=== PATIENT | male | born 1960 | race Caucasian/White ===

== ENCOUNTER 2020-05-24 10:02 | Observation (INO) ==
--- NOTE | 2020-05-05 14:54 | PAT Medication Instructions ---
Medication Instructions Date of Service May 05, 2020 Home Medications Medication Instructions Recorded meloxicam 15 mg tablet 15 mg PO daily PRN #30 tab 10/02/19 Wheeled Walker #1 ea 02/04/20 ferrous sulfate 325 mg (65 mg iron) tablet 325 mg PO 3XWK lorazepam 1 mg tablet 1 mg PO HS PRN meloxicam 15 mg tablet 15 mg PO daily PRN ibuprofen [Advil] 600 mg PO Q6H PRN ASK your surgeon for instructions meloxicam 15 mg tablet 15 mg PO daily PRN ibuprofen [Advil] 600 mg PO Q6H PRN DO NOT take the morning of surgery ferrous sulfate 325 mg (65 mg iron) tablet 325 mg PO 3XWK Take evening before surgery lorazepam 1 mg tablet 1 mg PO HS PRN (if needed) Other Notes If you have any questions please call us at [phone] or [phone] or [phone] or [phone]
--- NOTE | 2020-05-09 08:35 | Anesthesiology Consultation ---
Date of Service May 09, 2020 Assessment & Plan (1) Encounter for pre-operative examination: Per assessment on 05/09: Travel screen- Lives/works in [facility]. Uses PPE. No known COVID-19 positive contacts or current COVID-19 related symptoms. Surgeon arranging preop COVID testing. Awaiting results. Chart Review Chart Review: Acceptable Risk for Surgery and Patient seen in Pre Admission Testing Teaching & Discussion Pre-Anesthesia Teaching/Discussion Notes: Instructed NPO after midnight before surgery,except medications with 15 cc of water. Medication instructions provided according to the PAT guidelines. History Surgery Operation Date: 05/24/20 12:30 Proposed Procedures p Right Total Knee Arthroplasty - Vasile Murray MD Height/Weight Height: 5 ft 9 in Weight: 76.7 kg Allergies Allergy/AdvReac Type Severity Reaction Status Date / Time Penicillins AdvReac Unknown Hives Verified 05/09/20 08:56 (childhood) Medications Home Medications Medication Instructions Recorded Confirmed Last Taken ferrous sulfate 325 mg (65 mg 325 mg PO 3XWK 02/27/19 04/05/20 Unknown iron) tablet lorazepam 1 mg tablet 1 mg PO HS PRN 02/27/19 04/05/20 Unknown meloxicam 15 mg tablet 15 mg PO daily PRN #30 tab 10/02/19 04/05/20 Unknown Wheeled Walker #1 ea 02/04/20 02/04/20 Unknown ibuprofen [Advil] 600 mg PO Q6H PRN 04/05/20 04/05/20 Unknown Past Medical History Medical History Arthritis Exercise / Class Metabolic Activity II 4-5 Yardwork/Stairs/Walk up hill (one flight of stairs (no chest pain/no sob)) Past Surgical History Surgical History History of arthroscopy Right knee History of carpal tunnel release R/L History of colonoscopy History of herniorrhaphy History of repair of rotator cuff Right Past Anesthesia History No Hx of Anesthesia Complications and No Family Hx of Anesthesia Complications History of PONV No Hx of PONV and Hx of Motion Sickness (on oceans) Social History Smoking Status: Never smoker tobacco type: cigars Smoking cigarettes per day: 1 cigar/week (during golf season) Do You Dip or Chew Tobacco: No Hx Alcohol Use: Yes Alcohol type: beer alcohol intake frequency: a few times a week Hx Substance Use: No Review of Systems Patient denies chest pain, shortness of breath, dyspnea on exertion, fever, chills, cough, wheezing, palpitations. Physical Exam Vital Signs VITALS BP 144/93 P 71 TEMP 98.3 SP02 98%RA RESP 16 PHYSICAL Full neck and c-spine range of motion. Full TMJ range of motion. TMD 3 finger breaths Mallampati Score 1 Dentition: intact, + crowns (molars) Lungs: clear throughout to auscultation Cardiac: regular rate and rhythm, no murmurs noted Spine: normal Carotid arteries: negative bruit Extremities: no edema Testing Laboratory Results 05/09/20 09:11 05/09/20 09:11 PT 10.6 Seconds (9.0-12.0) 05/09/20 09:11 INR 1.0 (0.9-1.1) 05/09/20 09:11 APTT 29.2 Seconds (21.0-31.0) 05/09/20 09:11 Blood Type O Positive 05/09/20 09:11 Antibody Screen NEGATIVE 05/09/20 09:11 Electrocardiogram Date: 05/09/20 Findings: + NSR @ (68) Chest X-Ray Date: 05/09/20 FINDINGS: PA and lateral chest radiographs are obtained. No prior studies are available for comparison at the time of dictation. The cardiomediastinal silhouette is unremarkable. The lungs and pleural spaces are clear. There is no pneumothorax. The bony thorax appears intact. IMPRESSION: No active disease in the chest.
[2020-05-09 09:22] LABS: Basophils # (auto) 0.03 K/uL (0-0.2); Basophils % (auto) 0.5 %; Eosinophils # (auto) 0.16 K/uL (0-0.5); Eosinophils % (auto) 2.8 %; Hematocrit (blood only) 41.2 % (42-52); Hemoglobin 14.2 g/dL (14.0-18.0); Immature Granulocytes # (auto) 0.01 K/uL (0.00-0.02); Immature Granulocytes % (auto) 0.2 %; Lymphocytes # (auto) 1.41 K/uL (1.2-3.4); Lymphocytes % (auto) 24.8 %; Mean Corpuscular Hemoglobin 31.8 pg (25-34); Mean Corpuscular Hgb Conc 34.5 g/dL (32-36); Mean Corpuscular Volume 92.2 fL (80-100); Mean Platelet Volume 11.1 fL (7.4-10.4); Monocytes # (auto) 0.28 K/uL (0.11-0.59); Monocytes % (auto) 4.9 %; Neutrophils # (auto) 3.79 K/uL (1.4-6.5); Neutrophils % (auto) 66.8 %; Platelet Count 203 K/uL (130-400); RDW Coefficient of Variation 13.3 % (11.5-14.5); RDW Standard Deviation 44.7 fL (36.4-46.3); Red Blood Count 4.47 M/uL (4.7-6.1); White Blood Count 5.68 K/uL (4.8-10.8)
[2020-05-09 09:35] LABS: Partial Thromboplastin Time 29.2 Seconds (21.0-31.0); Prothrombin Time 10.6 Seconds (9.0-12.0)
--- NOTE | 2020-05-09 09:52 | XRay Report ---
TWO VIEW CHEST CLINICAL HISTORY: Preoperative examination. FINDINGS: PA and lateral chest radiographs are obtained. No prior studies are available for compariso n at the time of dictation. The cardiomediastinal silhouette is unremarkable. The lungs and pleural spaces are clear. There is no pneumothorax. The bony thorax appears intact. IMPRESSION: No active disease in the chest. ACT 112: Negative or not required by law. Electronically signed by: Jared Solitario M.D. 05/09/2020 9:50 AM
[2020-05-09 10:41] LABS: BUN Creatinine Ratio 17.2 (10-20); Calcium 8.7 mg/dl (8.5-10.1); Creatinine Clr Calc Pharmacy 75.3 ml/min; Est GFR (African American) 88.2; Est GFR (Non-African American) 76.1; Potassium 4.6 mmol/L (3.5-5.1)
--- NOTE | 2020-05-09 13:36 | Electrocardiogram Report ---
Test Reason : Blood Pressure : / mmHG Vent. Rate : 068 BPM Atrial Rate : 068 BPM P-R Int : 142 ms QRS Dur : 080 ms QT Int : 414 ms P-R-T Axes : 076 073 063 degrees QTc Int : 440 ms Normal sinus rhythm Normal ECG No previous ECGs available Confirmed by Javy Lewis ([id number]) on 05/09/2020 1:36:19 PM Referred By: Vasile Murray Confirmed By:Javy Lewis
--- NOTE | 2020-05-21 13:22 | History and Physical Report ---
DATE OF ADMISSION: 05/24/2020 CHIEF COMPLAINT: Right knee pain and discomfort. HISTORY OF PRESENT ILLNESS: The patient is a 59-year-old gentleman who presents for surgical treatment of his right knee. He has got a long history of right knee problems and had a knee scope done in the past many years ago. Over the past several years, he has developed increased pain and discomfort in the knee. Most of the pain is medial, but some global pain. He has tried various injections including viscosupplementation. The first time it helped quite a bit, the second time it did not help at all. He has had steroid shots, which helped for a couple weeks. He has become more disabled by his pain. It hurts him all the time. The pain increases as the day goes on. He limps more as the day goes on. He would like to have his knee fixed. PAST MEDICAL HISTORY: Noncontributory. PAST SURGICAL HISTORY: Shoulder surgery for rotator cuff disease. ALLERGIES: PENICILLIN, WHICH CAUSED HIVES A KID. No breathing problems. MEDICATIONS: Include Ativan 1 mg at nighttime to sleep. SOCIAL HISTORY: A 59-year-old male. He is from [place]. Does not smoke. Five drinks per week. FAMILY HISTORY: Noncontributory. REVIEW OF SYSTEMS: Negative for diabetes, neurologic problem, vascular problems or bleeding disorders. No chest pain or shortness of breath. No history of DVT or PE. PHYSICAL EXAMINATION: GENERAL:. Shows a pleasant, healthy appearing middle-aged male. Looks to be in good health. HEENT: Benign. NECK: Supple. No lymphadenopathy. LUNGS: Clear to auscultation. HEART: Has a regular rate and rhythm. ABDOMEN: Soft, nontender, nondistended. EXTREMITIES: Grossly neurovascularly intact except as follows. Examination of the right knee reveals the patient ambulates independently. He has got varus alignment to his knee with a bit of a varus thrust with weightbearing. He has got bony hypertrophy medially. He is tender over the medial joint line. Small knee effusion. Range of motion is 5 degrees short of full extension to 125 degrees of flexion. There is no gross instability. He does have some laxity with Stella testing, but no pivot shift. No pain with hip motion. X-RAYS: X-ray of the right knee reviewed. He has advanced right knee DJD. He has got complete loss of his medial joint space. He has subchondral sclerosis. He has got osteophytes off the medial femoral condyle and medial tibial plateau. A little bit of chondrocalcinosis laterally. ASSESSMENT: A 59-year-old male with a history of knee arthroscopy in the past with advanced right knee degenerative joint disease. He has failed conservative measures and would like to have his right knee replaced. PLAN: We will take him to the operating room and do a right total knee replacement. The risks and benefits of this procedure were explained to the patient include but not limited to DVT, PE, , infection, neurological injury, vascular injury, bleeding problem, pain, limited range of motion, stiffness, failure to relieve his symptoms, incomplete relief of symptoms, need for further surgery in future, fracture, leg length inequality, nerve palsy, persistent pain, etc. The patient understands and desires to proceed. Informed consent was obtained. As far as discharge plan, he is planning to be discharged to home using the [facility] home health program.
[~2020-05-24 10:02] MED LIST: ACETAMINOPHEN 500 MG TAB PO SCH; BUPIVACAINE 0.5 % 5 MG/1 ML PF 10ML VIAL ONE; BUPIVACAINE LIPOSOME/PF 266 MG, BUPIVACAINE/EPINEPHRINE 50 ML, SODIUM CHLORIDE 0.9% 30 ... INFIL SCH; FAMOTIDINE 20 MG TAB PO SCH; GABAPENTIN 600 MG DOSE PO SCH; LR 500ML BOLUS, THEN 15ML/HR IV SCH; LR 60ML/HR IV SCH; ROPIVACAINE 0.5% 5 MG/ML 30 ML VIAL ONE; TRANEXAMIC ACID 1,000 MG **IV Intra-op IV SCH; ceFAZolin 2000MG 2,000 MG/15 ML SYR IV SCH
[2020-05-24] MEDS ORDERED: MIDAZOLAM HCL 1 MG/ML 2ML VIAL ONE (10:22)
[2020-05-24] MEDS ORDERED: fentaNYL citrate 100 MCG/2 ML VIAL ONE (10:23)
--- NOTE | 2020-05-24 11:09 | History & Physical Bridge Note ---
Date of Service May 24, 2020 History & Physical Bridge Note I have examined the patient, reviewed the History & Physical and in the interval since the performance of the History & Physical I have noted the following changes of clinical significance: no changes noted
[2020-05-24] MEDS ORDERED: BUPIVACAINE LIPOSOME 1.3% 266 MG/20 ML VIAL ONE (11:35)
[2020-05-24] MEDS ORDERED: BACITRACIN INJ 50,000 UNIT VIAL ONE (11:35)
[2020-05-24] MEDS ORDERED: SODIUM CHLORIDE 0.9% PF 50 ML VIAL ONE (11:35)
[2020-05-24] MEDS ORDERED: BUPIVACAINE 0.25% 30 ML VIAL ONE (11:36)
[2020-05-24] MEDS ORDERED: EPINEPHrine INJ 1 MG/ML AMP ONE (11:36)
[2020-05-24] MEDS ORDERED: ePHEDrine sulfate 50 MG/ML AMP IV PRN (12:58)
[2020-05-24] MEDS ORDERED: HYDROmorphone INJ 1 MG/ML SYRINGE IV PRN (12:58)
[2020-05-24] MEDS ORDERED: ATROPINE SULFATE 0.1 MG/ML 10ML SYR IV PRN (12:58)
[2020-05-24] MEDS ORDERED: ONDANSETRON INJ 2 MG/ML 2 ML VIAL IV PRN ×2 (12:58→16:14)
[2020-05-24] MEDS ORDERED: KETOROLAC 30 MG/ML VIAL IV PRN (13:00)
[2020-05-24] MEDS ORDERED: PROPOFOL IV EMULSION 10 MG/ML 20 ML VIAL IV ONE ×2 (13:25→14:33)
--- NOTE | 2020-05-24 15:08 | Operative Report ---
Post Operative Report Pre & Post Diagnosis Operation Date: 05/24/20 12:30 Pre-Op Diagnosis: Right Knee Degenerative Jpoint Disease Post-Op Diagnosis: Right Knee Degenerative Jpoint Disease I identified the patient and participated in the time-out.: Yes Procedure Operation Date: 05/24/20 12:30 Actual Procedures p Right Total Knee Replacement(Right) - Vasile Murray MD Surgeon Vasile Murray MD Field Operations Manager DAKOTAH Cuellar Estimated Blood Loss 50 Findings Consistent with Post-Op Diagnosis Operative findings revealed advanced right knee DJD. He had grade 4 [id number] disease primarily medial compartment but also the trochlea. The lateral compartments pretty well-preserved. He had a fixed varus deformity to his knee. Moderate-sized joint effusion. Moderate synovitis. Fluids 1500 cc. Specimens Right knee sent for pathology. Drains None. Anesthesia Type Spinal MAC Complications none Disposition Accompanied Patient To Recovery: No Disposition: Recovery Room Indications Patient is a 59-year-old gentleman is had a several year history of increasing right knee pain discomfort. He had a history of a knee arthroscopy done many years ago. Over the years advised increased pain unresponsive conservative treatment. X-rays reveal advanced medial compartment arthritis. He had a fixed varus deformity to his knee. He elected proceed with surgical treatment. Description of Procedure Operative implants consist of: 1. Biomet Vanguard size 67.5 right posterior stabilized femoral component. 2. Biomet size 75 tibial tray. 3. 10 mm posterior stabilized polyethylene insert. 4. 31 x 8 all polypatella. Patient was taken to the operating identified and placed on the operating table supine position but all contact areas were properly padded. IV antibiotics by anesthesia team. Spinal anesthetic and abductor canal block had provided holding area. Shafer catheter was placed in sterile fashion. Right thigh tract was then placed in the right lower extremities and prepped and draped in usual sterile fashion. The right leg was elevated exsanguinated with use of an Esmarch and tourniquet placed at 300 mmHg. An anterior approach to the right knee was then performed to longitudinal incision centered over the patella. Sharp dissection got through subcutaneous is down the extensor mechanism. A medial parapatellar arthrotomy incision was made. Some subperiosteal dissection was carried out medially. The fat pad was resected beneath patella tendon. Lateral patellofemoral ligament was released. Patella was subluxated laterally and the knee was flexed. The osteophytes were taken off the distal femur. The ACL and PCL were then released from the distal femur and the tibia subluxated anteriorly. The external tibial alignment jig was then placed in the interface the tibia and adjusted 14 mm medially. Proximal tibial cut was made remove about a millimeter or 2 of bone from most efficient aspect medial till plateau. The tibia size a size 75. Attention drawn the femur. The distal femur was entered with a sharp drop with intramedullary canal was suction. Right 6 degree valgus cutting guide was placed. Distal femoral cutting block was pinned in place. Distal femoral cut was made to take an additional 3 mm of bone off distal femur. The femur was then sized to a size 67.5. The AP cutting block was pinned parallel to the epicondylar axis which was 3 degrees of external rotation. The anterior cut, anterior chamfer, posterior cut, posterior chamfer cuts were made. Box cutting guide was placed in just slight lateral box cut was made. The knee was flexed. The remnants of the medial and lateral menisci were excised. The osteophytes were taken off the posterior aspect of the femur. A trial femoral component was placed through the tibial tray was pinned in maximum external rotation and the drill and stem punch were used to create defect in proximal tip for the tibial tray. Knee was then trialed the 10 mm insert fit most appropriately. Attention drawn the patella. The patella was cleaned of all soft tissues. Patella thickness measured 23 mm in thickness was cut down to 14. Was sized to a size 31 patella. The lug holes were drilled for 31 patella. The lateral osteophyte is moved. Patella button was placed. Knee was taken through range of motion patella tracked nicely with no thumbs test. Attention drawn to placing permanent components. All trial components were removed. A bone plug was placed in the distal femur limit blood loss put a double batch Palacos G cement was mixed. A Biomet Vanguard size 67.5 right posterior stabilized femoral component, size 75 tibial tray, a 10 mm posterior stabilized polyethylene insert, and a 31 x 8 all polypatella were then cemented into place. The knee was brought out into full extension until the cement hardened. Final cement check was then performed. Pericapsular tissues were injected with total of 100 cc of combination of 20 cc of Exparel, 30 cc normal saline, 50 cc of quarter percent Marcaine with epinephrine. Patient did receive 1 g tranexamic acid. The tourniquet was then let down for final tourniquet time of 59 minutes. Hemostasis assured use electrocautery. The extensor neck was then closed with combination 1 PDS suture and then 1 Vicryl suture in a [id number] fashion. The extensor mechanism checked found to be intact with the subcutaneous tissue then closed with 2 Dexon suture in a buried interrupted fashion skin was closed skin rojelio. Legs then cleaned dried a sterile dressing was Xeroform, 4 x 4's, sterile cast padding, Alonso bandage were applied. Patient then transferred to the recovery room in stable condition. Patient tolerated the procedure well and there were no complications. Lion Cuellar, my physician lpn or medical assistant, was present for the entire procedure. His assistance was essential and required for appropriate patient positioning, prepping and draping, surgical exposure, performing the technical details of the operation, placement the implants, closure of the wound, and placement of the sterile bandage. I attest to the content of the Intraoperative Record and any orders documented therein. Any exceptions are noted below.
--- NOTE | 2020-05-24 15:26 | XRay Report ---
XR knee RT 1 or 2V routine CLINICAL HISTORY: Surgical Post Op COMPARISON: January 2020 DISCUSSION: There are postsurgical changes of a total right knee arthroplasty and patellar resurfacin g. The femoral and tibial components appear well seated. There are overlying skin rojelio. There is g as within the soft tissues consistent with recent surgery. IMPRESSION: Postsurgical changes of a total right knee arthroplasty. ACT 112: Negative or not required by law. Electronically signed by: Will Adame M.D. 05/24/2020 3:24 PM
--- NOTE | 2020-05-24 15:47 | Anesthesiology Progress Note ---
Date of Service May 24, 2020 Anesthesia Post Procedure Vital Signs Vital Signs: Temp Pulse Pulse Resp BP BP Pulse Ox 05/24/20 15:40 36.4 C L 58 L 16 131/87 98 05/24/20 15:30 62 16 132/87 98 05/24/20 15:20 57 L 16 135/77 100 05/24/20 15:10 53 L 16 124/74 100 05/24/20 15:02 36.4 C L 73 16 123/76 100 05/24/20 10:25 36.7 C 77 18 133/93 96 Transfer of Care Handoff Completed per policy Notes Mental Status: alert / awake / arousable Patient Amnestic to Procedure: Yes Nausea / Vomiting: adequately controlled Pain: adequately controlled Airway Patency, RR, SpO2: stable & adequate BP & HR: stable & adequate Hydration State: stable & adequate Neuraxial Anesthesia: was administered and sensory block is resolving Anesthetic Complications: no major complications apparent and Pt Satisfied with anesthetic care
[2020-05-24] MEDS ORDERED: bisacodyL 10 MG SUPP PR PRN (16:14)
[2020-05-24] MEDS ORDERED: NALOXONE HCL 0.4 MG/1 ML VIAL/CARP IV PRN (16:14)
[2020-05-24] MEDS ORDERED: oxyCODONE HCL IR 5 MG TAB (IMMEDIATE RELEASE) PO PRN (16:14)
[2020-05-24] MEDS ORDERED: diphenhydrAMINE Capsule 25 MG CAP PO PRN (16:14)
[2020-05-24] MEDS ORDERED: METOCLOPRAMIDE HCL INJ 5 MG/ML 2 ML VIAL IV PRN (16:14)
[2020-05-24] MEDS ORDERED: TAMSULOSIN HCL 0.4 MG CAP PO PRN (16:14)
[2020-05-24] MEDS ORDERED: ALUMINUM/MAGNESIUM SUSP 30 ML UDC PO PRN (16:14)
[2020-05-24] MEDS ORDERED: HYDROmorphone INJ 0.5 MG/0.5 ML SYR IV PRN (16:14)
[2020-05-24] MEDS ORDERED: MAGNESIUM HYDROXIDE SUSP 30 ML UDC PO PRN (16:14)
[2020-05-24] MEDS ORDERED: LORazepam 1 MG TAB PO PRN (16:17)
[2020-05-24] MEDS: Scopolamine CHECK PATCH PLACEMENT SCH ×2 (17:00→23:43)
[2020-05-24] MEDS: FERROUS GLUCONATE 324 MG TAB PO SCH (17:32)
[2020-05-24] MEDS: ASCORBIC ACID 500 MG TAB PO SCH (17:32)
[2020-05-24] MEDS: KETOROLAC 30 MG/ML VIAL IV SCH ×2 (17:32→21:52)
[2020-05-24] MEDS: SODIUM CHLORIDE 0.9% 1000ML 1,000 ML IV SCH (18:22)
[2020-05-24] MEDS: ASPIRIN 81 MG ECTAB PO SCH (20:32)
[2020-05-24] MEDS: DOCUSATE SODIUM 100 MG CAP PO SCH (20:32)
[2020-05-24] MEDS: TAPENTADOL HCL ER 50 MG TABCR PO SCH (20:35)
[2020-05-24] MEDS: ceFAZolin 1000MG 1,000 MG/7.5 ML SYR IV SCH (20:50)
[2020-05-24] MEDS ORDERED: TRANEXAMIC ACID / 0.7% NACL 1,000 MG/100 ML BAG IV SCH (21:00)
[2020-05-24] MEDS ORDERED: SENNA 8.6 MG TAB PO SCH (21:00)
[2020-05-24] MEDS: ACETAMINOPHEN 500 MG TAB PO SCH (21:51)
[2020-05-25] MEDS: SODIUM CHLORIDE 0.9% 1000ML 1,000 ML IV SCH (03:40)
[2020-05-25] MEDS: KETOROLAC 30 MG/ML VIAL IV SCH ×2 (05:09→10:52)
[2020-05-25] MEDS: ACETAMINOPHEN 500 MG TAB PO SCH (05:09)
[2020-05-25] MEDS: ceFAZolin 1000MG 1,000 MG/7.5 ML SYR IV SCH (05:19)
[2020-05-25 06:09] LABS: Hematocrit (blood only) 36.7 % (42-52); Hemoglobin 12.6 g/dL (14.0-18.0); Mean Corpuscular Hemoglobin 31.5 pg (25-34); Mean Corpuscular Hgb Conc 34.3 g/dL (32-36); Mean Corpuscular Volume 91.8 fL (80-100); Mean Platelet Volume 10.9 fL (7.4-10.4); Platelet Count 155 K/uL (130-400); RDW Coefficient of Variation 13.2 % (11.5-14.5); RDW Standard Deviation 44.2 fL (36.4-46.3); White Blood Count 5.79 K/uL (4.8-10.8)
[2020-05-25 06:48] LABS: Calcium 8.2 mg/dl (8.5-10.1); Creatinine Clr Calc Pharmacy 71.9 ml/min; Est GFR (African American) 83.5; Potassium 4.3 mmol/L (3.5-5.1)
[2020-05-25] MEDS ORDERED: dexAMETHasone 4 MG TAB PO SCH (08:00)
--- NOTE | 2020-05-25 08:08 | Anesthesiology Progress Note ---
Date of Service May 25, 2020 Anesthesia Post Procedure Vital Signs Vital Signs: Temp Pulse Pulse Pulse Resp BP BP 05/25/20 07:02 36.8 C 79 18 141/89 H 05/25/20 04:22 36.6 C 66 18 139/89 05/24/20 23:10 36.6 C 59 L 18 154/94 H 05/24/20 18:50 36.3 C L 52 L 18 135/79 05/24/20 17:49 36.3 C L 59 L 18 129/86 05/24/20 16:50 36.3 C L 50 L 18 128/82 05/24/20 16:25 36.4 C L 54 L 18 130/86 05/24/20 15:50 36.4 C L 55 L 16 138/87 05/24/20 15:40 36.4 C L 58 L 16 131/87 05/24/20 15:30 62 16 132/87 05/24/20 15:20 57 L 16 135/77 05/24/20 15:10 53 L 16 124/74 05/24/20 15:02 36.4 C L 73 16 123/76 05/24/20 10:25 36.7 C 77 18 133/93 Pulse Ox 05/25/20 07:02 99 05/25/20 04:22 97 05/24/20 23:10 100 05/24/20 18:50 99 05/24/20 17:49 100 05/24/20 16:50 100 05/24/20 16:25 98 05/24/20 15:50 98 05/24/20 15:40 98 05/24/20 15:30 98 05/24/20 15:20 100 05/24/20 15:10 100 05/24/20 15:02 100 05/24/20 10:25 96 Notes Mental Status: alert / awake / arousable and participated in evaluation Patient Amnestic to Procedure: Yes Nausea / Vomiting: adequately controlled Pain: adequately controlled Airway Patency, RR, SpO2: stable & adequate Hydration State: stable & adequate Neuraxial Anesthesia: was administered and sensory block is resolving Anesthetic Complications: no major complications apparent and Pt Satisfied with anesthetic care
[2020-05-25] MEDS: Scopolamine CHECK PATCH PLACEMENT SCH (08:15)
[2020-05-25] MEDS: DOCUSATE SODIUM 100 MG CAP PO SCH (08:16)
[2020-05-25] MEDS: ASPIRIN 81 MG ECTAB PO SCH (08:16)
[2020-05-25] MEDS: FERROUS GLUCONATE 324 MG TAB PO SCH (08:17)
[2020-05-25] MEDS: ASCORBIC ACID 500 MG TAB PO SCH (08:17)
[2020-05-25] MEDS: TAPENTADOL HCL ER 50 MG TABCR PO SCH (08:19)
[2020-05-25] MEDS ORDERED: MULTIVITAMIN TAB PO SCH (09:00)
--- NOTE | 2020-05-25 10:05 | Progress Notes ---
DATE: 05/25/2020 SUBJECTIVE: A 59-year-old gentleman postop day 1 from right knee replacement. He is doing pretty well. Pain has been controlled. No chest pain or shortness of breath. Not feeling dizzy or lightheaded. Had a pretty good night. OBJECTIVE: VITAL SIGNS: Temperature 36.8. Vital signs are stable. GENERAL: Shows a pleasant, middle-aged male. He is sitting up in bed, looks quite comfortable this morning. LUNGS: Clear to auscultation. HEART: Regular rate and rhythm. ABDOMEN: Soft, nontender, nondistended. EXTREMITIES: Grossly neurovascularly intact except as follows: Examination of the right leg reveals the leg to be well aligned. Dressing is clean, dry, and intact. He can dorsiflex and plantarflex his foot appropriately. He can do a straight leg raise. LABORATORY DATA: Hemoglobin 12.6. Hematocrit 36.7. Electrolytes are stable. ASSESSMENT: A 59-year-old gentleman postoperative day 1 from right knee replacement, doing pretty well. His pain is controlled. He is neurologically intact. PLAN: 1. DVT prophylaxis including thigh-high TEDs, SCDs, and aspirin twice a day. 2. PT/OT, weight bear as tolerated. Right total knee replacement. 3. Pain control, doing well with current pain regimen. 4. Disposition: Plan to discharge to home with some home health likely later today.
--- NOTE | 2020-05-27 13:27 | Discharge Summary ---
Date of Service May 27, 2020 Discharge Data Consultations 05/24/20 16:14 Consult Case Management - Discharge Planning Routine Procedures Performed Operation Date: 05/24/20 12:30 Actual Procedures p Right Total Knee Replacement(Right) - Vasile Murray MD Hospital Course (1) Status post total right knee replacement: This patient is a 59 year old male admitted on 05/24/20 and underwent total knee arthroplasty. He tolerated the procedure well and there were no complications. Transferred to the PACU post op and later to the orthopedic floor for further care. He was given ancef for antibiotic prophylaxis. He was also given MERLE stockings, SCDs, and aspirin for DVT prophylaxis. Hemoglobin, hematocrit, and vital signs were monitored during his hospital stay and remained stable. Did not require any blood transfusions. There were no complications during his hospital stay. By post op day #1 the patient was tolerating a regular diet, pain was reasonably controlled with oral pain medicine, and he was participating in physical therapy. On post op day #1 the patient was discharged home and set up with home health care. He was given printed discharge instructions including prescriptions for extra strength tylenol, aspirin, and oxycodone. Continue physical therapy, weight bearing as tolerated. Continue MERLE stockings. Follow up approximately 2 weeks post op or sooner if there are problems or concerns. Coding Level of Care Code None Diagnoses Status post total right knee replacement Z96.651
== END 2020-05-25 12:59 | disposition home health service (06) ==
LOC: 3E 10:02 → ASU 10:02